=== PATIENT | female | born 1990 | race Caucasian/White ===

== ENCOUNTER 2016-12-23 21:31 | Emergency (ER) | payer SELFPAY ==
[~2016-12-23] VITALS: Ht 149.9 cm; Wt 57.2 kg
[2016-12-23 21:50] VITALS: Ht 149.9 cm; Wt 57.2 kg
[2016-12-23] MEDS ORDERED: SOD CHLORIDE 0.9% 1,000 ML IV STA (23:51)
[2016-12-23] MEDS ORDERED: ONDANSETRON 4 MG INJ IV STA (23:51)
[2016-12-23] MEDS ORDERED: FAMOTIDINE 20 MG INJ IV STA (23:51)
[2016-12-24] MEDS ORDERED: CLIN-73 PO (00:20)
--- NOTE | 2016-12-24 00:21 | ERD ---
ER Documentation Chief Complaint Date/Time DATE: 12/24/16 TIME: 00:17 Chief Complaint vomiting blood tonight HPI 26-year-old female presents here in emergency department for complaints of nausea and vomiting started tonight. Patient states that she is vomiting, seems like blood. Patient denies any abdominal pain. Patient denies any flank pain. Patient denies any fever or chills. Patient is currently on clindamycin for possible treatment of dental infection for possible molar removal. She denies any other bleeding symptoms. Patient denies any hematuria, ecchymosis. ROS All systems reviewed and are negative except as per history of present illness. Medications Home Meds Active Scripts Ondansetron (Ondansetron Odt) 4 Mg Tab.rapdis, 4 MG PO Q8 Y for NAUSEA AND/OR VOMITING, #30 TAB Prov:GRACE RUIZ NP 12/24/16 Famotidine* (Pepcid*) 20 Mg Tablet, 20 MG PO BID, #60 TAB Prov:GRACE RUIZ NP 12/24/16 Reported Medications Clindamycin Hcl* (Clindamycin Hcl*) Unknown Strength Capsule, PO TID for 10 Days , CAP 12/24/16 Allergies Allergies: Coded Allergies: Penicillins (Verified Allergy, Intermediate, HIVES, 12/23/16) clindamycin (Verified Allergy, Mild, VOMITING BLOOD, 12/23/16) PMhx/Soc Medical and Surgical Hx: pt denies Medical Hx, pt denies Surgical Hx History of Surgery: No Anesthesia Reaction: No Hx Neurological Disorder: No Hx Respiratory Disorders: No Hx Cardiac Disorders: No Hx Psychiatric Problems: No Hx Miscellaneous Medical Probl: No Hx Alcohol Use: Yes Hx Substance Use: No Hx Tobacco Use: Yes Smoking Status: Former smoker FmHx Family History: No coronary disease, No diabetes, No other Physical Exam Vitals Vital Signs Date Time Temp Pulse Resp B/P Pulse Ox O2 Delivery O2 Flow Rate FiO2 12/23/16 21:50 99.1 93 18 123/87 99 Physical Exam GENERAL: The patient is well developed and appropriate for usual state of health, in no apparent distress. CHEST: Clear to auscultation bilaterally. There are no rales, wheezes or rhonchi. HEART: Regular rate and rhythm. No murmurs, clicks, rubs or gallops. No S3 or S4. ABDOMEN: Soft, nontender and nondistended. Good bowel sounds. No rebound or guarding. No gross peritonitis. No gross organomegaly or masses. No Huertas sign or McBurney point tenderness. BACK: No midline or flank tenderness. EXTREMITIES: Equal pulses bilaterally. There is no peripheral clubbing, cyanosis or edema. No focal swelling or erythema. Full range of motion. Grossly neurovascularly intact. NEURO: Alert and oriented. Cranial nerves 2-12 intact. Motor strength in all 4 extremities with 5/5 strength. Sensation grossly intact. Normal speech and gait. SKIN: There is no apparent rash or petechia. The skin is warm and dry. HEMATOLOGIC AND LYMPHATIC: There is no evidence of excessive bruising or lymphedema. No gross cervical, axillary, or inguinal lymphadenopathy. Result Diagram: 12/24/16 0015 12/24/16 0015 Results 24 hrs Laboratory Tests Test 12/24/16 00:00 12/24/16 00:15 12/24/16 01:15 Stool Occult Blood NEGATIVE White Blood Count 8.310^3/ul Red Blood Count 4.6710^6/ul Hemoglobin 13.5g/dl Hematocrit 40.0% Mean Corpuscular Volume 85.7fl Mean Corpuscular Hemoglobin 28.9pg Mean Corpuscular Hemoglobin Concent 33.8g/dl Red Cell Distribution Width 12.0% Platelet Count 38311^3/UL Mean Platelet Volume 11.8fl Neutrophils % 46.4% Lymphocytes % 45.3% Monocytes % 6.1% Eosinophils % 1.6% Basophils % 0.4% Nucleated Red Blood Cells % 0.0/100WBC Neutrophils # (Manual) 3.910^3/ul Lymphocytes # 3.810^3/ul Monocytes # 0.510^3/ul Eosinophils # 0.110^3/ul Basophils # 0.010^3/ul Nucleated Red Blood Cells # 0.010^3/ul Sodium Level 141mmol/L Potassium Level 3.5mmol/L Chloride Level 105mmol/L Carbon Dioxide Level 25mmol/L Anion Gap 15 Blood Urea Nitrogen 13mg/dl Creatinine 0.69mg/dl Glucose Level 91mg/dl Calcium Level 9.5mg/dl Total Bilirubin 0.1mg/dl Direct Bilirubin 0.00mg/dl Indirect Bilirubin 0.1mg/dl Aspartate Amino Transf (AST/SGOT) 31IU/L Alanine Aminotransferase (ALT/SGPT) 30IU/L Alkaline Phosphatase 78IU/L Total Protein 8.0g/dl Albumin 4.3g/dl Globulin 3.70g/dl Albumin/Globulin Ratio 1.16 Lipase 130U/L Urine Color YELLOW Urine Clarity CLEAR Urine pH 5.0 Urine Specific [place] 1.016 Urine Ketones NEGATIVEmg/dL Urine Nitrite NEGATIVEmg/dL Urine Bilirubin NEGATIVEmg/dL Urine Urobilinogen NEGATIVEmg/dL Urine Leukocyte Esterase NEGATIVELeu/ul Urine Hemoglobin NEGATIVEmg/dL Urine Glucose NEGATIVEmg/dL Urine Total Protein NEGATIVEmg/dl Urine Test NEGATIVE Current Medications Medications (Trade) Dose Ordered Sig/Toñito Route PRN Reason Start Time Stop Time Status Last Admin Dose Admin Sodium Chloride (NS) 1,000 ml @ 1,000 mls/hr Q1H STAT IV 12/23/16 23:51 12/24/16 00:50 DC 12/24/16 00:19 Ondansetron HCl (Zofran Inj) 4 mg ONCE STAT IV 12/23/16 23:51 12/23/16 23:53 DC 12/24/16 00:20 Famotidine (Pepcid Iv) 20 mg ONCE STAT IV 12/23/16 23:51 12/23/16 23:53 DC 12/24/16 00:20 IV Flush 10 ml 10 ml STK-MED ONCE .ROUTE 12/24/16 02:51 12/24/16 02:52 DC 12/24/16 03:00 Sodium Chloride (NS) 100 ml @ ud STK-MED ONCE .ROUTE 12/24/16 02:51 12/24/16 02:52 DC 12/24/16 03:00 Iohexol (Omnipaque 300mg/ ml) 150 ml STK-MED ONCE .ROUTE 12/24/16 02:51 12/24/16 02:52 DC 12/24/16 03:00 Normal saline IV bolus was given here in emergency department for rehydration, patient tolerated IV fluids.Pepcid and Zofran was given here in the ER. PROCEDURE: CT ABDOMEN/PELVIS WITH CONTRAST CLINICAL INDICATION: 24-year-old female with abdominal pain. TECHNIQUE: The study was performed utilizing a [employer] 64-slice CT scanner. Direct axial sections were obtained through the abdomen and pelvis with the use of 90 cc of Omnipaque-300 nonionic intravenous contrast material. Sagittal and coronal reformations were obtained. One or more of the following dose reduction techniques were utilized: automated exposure control, adjustment of the mA and/or kV according to patient's size or use of iterative reconstruction technique. The images were reviewed on a PACS workstation. CTD/ vol = 7.0 mGy; Total Exam DLP = 350.9 mGy-cm. COMPARISON: None. FINDINGS: The lung bases are unremarkable. There is no evidence for significant pleural effusion. The liver has a normal size and contour. There is mild diffuse decreased density throughout the liver consistent with fatty infiltration but without focal areas of abnormal density or contrast enhancement. No intrahepatic nor extrahepatic biliary ductal dilatation is seen. The gallbladder contains a small noncalcified gallstone without significant wall thickening or pericholecystic fluid. The pancreas is without areas of abnormal attenuation or contrast enhancement. This spleen is identified and has a normal size without abnormal density or contrast enhancement. The adrenal glands are unremarkable. The kidneys are functional bilaterally without abnormal density. No hydroureteronephrosis nor nephroureterolithiasis is evident. The urinary bladder contains urine. There is no evidence for bowel obstruction. The appendix is visualized and is without edema or surrounding inflammatory reaction. The uterus is anteflexed. There is no significant free fluid. The aortoiliac vessels are without aneurysmal dilatation. The osseous structures are intact. IMPRESSION: 1. Mild hepatic steatosis. 2. Cholelithiasis. 3. No CT evidence for appendicitis. .Lonny Dillard MD, MD Date Time Electronically viewed and signed by .Lonny Dillard MD, on 12/24/2016 03:16 .M/ CC: GRACE RUIZ MOLD INSERT CHANGER Procedures/MDM Medical Decision Making: Patient's vomiting and nonspecific at this time, can be viral, can be also from gastritis. At this time, hemoglobin and hematocrit is normal, Hemoccult blood tests is negative for any blood. Low suspicion for any internal hemorrhage, bowel perforation.There is low suspicion for abdominal emergencies at this time. Patients abdominal exam is normal at this time. Patients radiology exam does not show any abdominal emergencies at this time. There is low suspicion for appendicitis, cholecystitis, abdominal aortic aneurysms or peritonitis at this time. There is low suspicion for sepsis. Patient appears well and is hemodynamically stable. Disposition: Home. Condition: Stable Prescription zofran, pepcid Instructions: Patient is advised to take medications as prescribed. Patient is advised to rest, increase fluid intake and do brat diet for next 1-2 days and progress as tolerated. Patient is advised that if symptoms are worse, severe abdominal pain, uncontrolled vomiting, high fever, severe flank pain, worst signs and symptoms, to return to the emergency department immediately. Otherwise, patient can follow up with primary care doctor in 5-7 days. Departure Diagnosis: Primary Impression: Vomiting Vomiting type: unspecified Vomiting Intractability: unspecified Nausea presence: unspecified Qualified Code: R11.10 - Vomiting, intractability of vomiting not specified, presence of nausea not specified, unspecified vomiting type Condition: Stable Patient Instructions: Vomiting (6Y-Adult) Additional Instructions: Patient is advised to take medications as prescribed. Patient is advised to rest, increase fluid intake and do brat diet for next 1-2 days and progress as tolerated. Patient is advised that if symptoms are worse, severe abdominal pain , uncontrolled vomiting, high fever, severe flank pain, worst signs and symptoms , to return to the emergency department immediately. Otherwise, patient can follow up with primary care doctor in 5-7 days. GRACE RUIZ NP Dec 24, 2016 00:20
[2016-12-24 01:59] LABS: BASOPHILS % 0.4 % (0.0-2.0); EOSINOPHILS # 0.1 10^3/ul (0.0-0.5); EOSINOPHILS % 1.6 % (0.0-7.0); HEMOGLOBIN 13.5 g/dl (12.0-16.0); LYMPHOCYTES # 3.8 10^3/ul (0.8-2.9); LYMPHOCYTES % 45.3 % (15.0-51.0); MEAN CORPUSCULAR HEMOGLOBIN 28.9 pg (29.0-33.0); MEAN CORPUSCULAR HGB CONC 33.8 g/dl (32.0-37.0); MEAN CORPUSCULAR VOLUME 85.7 fl (82.0-101.0); MEAN PLATELET VOLUME 11.8 fl (7.4-10.4); MONOCYTE # 0.5 10^3/ul (0.3-0.9); MONOCYTES % 6.1 % (0.0-11.0); NEUTROPHILS % 46.4 % (39.0-77.0); PLATELET COUNT 343 10^3/UL (140-415); RED BLOOD COUNT 4.67 10^6/ul (4.20-5.40); WHITE BLOOD COUNT 8.3 10^3/ul (4.8-10.8)
[2016-12-24 02:30] LABS: ADD UMIC NO; UR ASCORBIC ACID NEGATIVE (NEGATIVE); UR BILIRUBIN (Dip) NEGATIVE (NEGATIVE); UR BLOOD (Dip) NEGATIVE (NEGATIVE); UR CLARITY CLEAR (CLEAR); UR COLOR YELLOW (YELLOW); UR GLUCOSE (Dip) NEGATIVE (NEGATIVE); UR KETONES (Dip) NEGATIVE (NEGATIVE); UR LEUKOCYTE ESTERASE (Dip) NEGATIVE Leu/ul (NEGATIVE); UR NITRITE (Dip) NEGATIVE (NEGATIVE); UR SPECIFIC GRAVITY (Dip) 1.016 (1.003-1.030); UR TOTAL PROTEIN (Dip) NEGATIVE (NEGATIVE); UR UROBILINOGEN (Dip) NEGATIVE (NEGATIVE)
[2016-12-24 02:39] LABS: ALBUMIN 4.3 g/dl (3.3-4.9); ALBUMIN/GLOBULIN RATIO 1.16; BILIRUBIN,INDIRECT 0.1 mg/dl (0-1.1); BILIRUBIN,TOTAL 0.1 mg/dl (0.2-1.3); CALCIUM 9.5 mg/dl (8.4-10.2); CREATININE 0.69 mg/dl (0.44-1.00); POTASSIUM 3.5 mmol/L (3.5-5.1)
[2016-12-24] MEDS ORDERED: SOD CHLORIDE 0.9% 100 ML ONE (02:51)
[2016-12-24] MEDS ORDERED: IOHEXOL 300MG/ML 150 ML BTL ONE (02:51)
--- NOTE | 2016-12-24 03:16 | RADRPT ---
PROCEDURE: CT ABDOMEN/PELVIS WITH CONTRAST CLINICAL INDICATION: 24-year-old female with abdominal pain. TECHNIQUE: The study was performed utilizing a [employer] 64-slice CT scanner. Direct axia l sections were obtained through the abdomen and pelvis with the use of 90 cc of Omnipaque-300 nonio mukund intravenous contrast material. Sagittal and coronal reformations were obtained. One or more of t he following dose reduction techniques were utilized: automated exposure control, adjustment of the mA and/or kV according to patient's size or use of iterative reconstruction technique. The images w ere reviewed on a PACS workstation. CTD/vol = 7.0 mGy; Total Exam DLP = 350.9 mGy-cm. COMPARISON: None. FINDINGS: The lung bases are unremarkable. There is no evidence for significant pleural effusion. The liver has a normal size and contour. There is mild diffuse decreased density throughout the liver consist ent with fatty infiltration but without focal areas of abnormal density or contrast enhancement. No intrahepatic nor extrahepatic biliary ductal dilatation is seen. The gallbladder contains a small no ncalcified gallstone without significant wall thickening or pericholecystic fluid. The pancreas is w ithout areas of abnormal attenuation or contrast enhancement. This spleen is identified and has a n ormal size without abnormal density or contrast enhancement. The adrenal glands are unremarkable. Th e kidneys are functional bilaterally without abnormal density. No hydroureteronephrosis nor nephrour eterolithiasis is evident. The urinary bladder contains urine. There is no evidence for bowel obstru ction. The appendix is visualized and is without edema or surrounding inflammatory reaction. The uterus is anteflexed. There is no significant free fluid. The aortoiliac vessels are without aneur ysmal dilatation. The osseous structures are intact. IMPRESSION: 1. Mild hepatic steatosis. 2. Cholelithiasis. 3. No CT evidence for appendicitis. .Lonny Dillard MD, Date Time Electronically viewed and signed by .Lonny Dillard MD, on 12/24/2016 03:16 .Rylie/
[2016-12-24] MEDS ORDERED: FAMO-96 PO (03:39)
[2016-12-24] MEDS ORDERED: ONDA4TAB14 PO (03:39)
[2016-12-24 03:52] VITALS: BP 123/85; PULSE 79; RESP 18
== END 2016-12-24 03:53 | disposition home or self-care (01) ==
LOC: FTE 21:31
DX: R11.10 Vomiting, unspecified (principal); Z87.891 Personal history of nicotine dependence
CPT/HCPCS: 36415; 74177; 80053; 81003; 82270; 83690; 84703; 85025; 96374; 96375; 99285; J2405; J7030; Q9967